=== PATIENT | male | born 1945 | race Caucasian/White ===

== ENCOUNTER → 2023-09-14 11:35 | Outpatient (REF) | payer MEDICARE, SELFPAY ==
[2023-09-14 12:15] LABS: % Basophils 0.6 % (0-2); % Eosinophils 3.5 % (0-6); % Immature Granulocytes 0.3 % (0-0.5); % Lymphocytes 10.5 % (20.5-51.1); % Monocytes 7.9 % (1.7-9.3); % Neutrophils 77.2 % (42.2-75.2); Absolute Basophils 0.1 10^3/uL (0-0.2); Absolute Eosinophils 0.4 10^3/uL (0-0.7); Absolute Lymphocytes 1.1 10^3/uL (1.2-3.4); Absolute Monocytes 0.8 10^3/uL (0.1-0.6); Absolute Neutrophils 8.2 10^3/uL (1.4-6.5); Hematocrit 39.5 % (39.0-52.0); Hemoglobin 12.6 g/dL (13.0-18.0); Mean Corp Hgb Conc. 31.9 g/dL (33.0-37.0); Mean Corpuscular Hgb 31.8 pg (27.0-31.0); Mean Corpuscular Volume 99.7 fL (80.0-94.0); Mean Platelet Volume 11.2 fL (7.4-10.4); Nucleated Red Blood Cells % 0 % (-); Platelet Count 214 10^3/uL (130-400); Red Blood Cell Count 3.96 10^6/uL (4.70-6.10); Red Cell Dist. Width 13.2 % (11.5-14.5); White Blood Cell Count 10.6 10^3/uL (4.8-10.8)
[2023-09-14 12:43] LABS: ALT (SGPT) 34 U/L (0-50); AST (SGOT) 42 U/L (17-59); Alkaline Phosphatase 73 U/L (38-126); Blood Urea Nitrogen 20 mg/dl (9-20); Calcium 9.1 mg/dl (8.4-10.2); Carbon Dioxide 29 mmol/L (22-30); Chloride 109 mmol/L (98-107); Glucose 93 mg/dl (70-99); HDL Cholesterol 47 mg/dl; LDL Cholesterol, Calculated 104 mg/dl; Potassium 3.8 mmol/L (3.5-5.1); Sodium 141 mmol/L (135-145); Total Bilirubin 1.1 mg/dl (0.2-1.3); Total Cholesterol 168 mg/dl (50-199); Total Protein 6.7 g/dl (6.3-8.2); Triglyceride 89 mg/dl (10-149); Very Low Density Lipoprotein 17 mg/dl (0-30); eGFR > 60.00
== END ==
LOC: REG 11:35
PROVIDERS: ATTENDING PHYSICIAN Family Medicine; OTHER PHYSICIAN Internal Medicine Critical Care Medicine; REFERRING PHYSICIAN Internal Medicine Cardiovascular Disease
DX: E78.2 Mixed hyperlipidemia (principal); F10.20 Alcohol dependence, uncomplicated
CPT/HCPCS: 36415; 80053; 80061; 85025

== ENCOUNTER → 2023-10-30 13:44 | Outpatient (REF) | payer MEDICARE, SELFPAY | LOC: RCS 13:44 | PROVIDERS: ATTENDING PHYSICIAN Internal Medicine Cardiovascular Disease; FAMILY PHYSICIAN Family Medicine | DX: Z95.2 Presence of prosthetic heart valve (principal) | CPT/HCPCS: 93306 ==

== ENCOUNTER 2024-06-02 16:20 | Emergency (ER) | payer MEDICARE, SELFPAY ==
[2024-06-02 16:21] VITALS: BP 173/71
--- NOTE | 2024-06-02 16:48 | EDRN ---
Dr. Zuñiga in room w/ pt at this time.
--- NOTE | 2024-06-02 16:54 | ED.GENMED ---
History of Present Illness
General
Chief Complaint: Visual Problem
Source: patient
Exam Limitations: none
Time Seen by Provider: 06/02/24 16:43
History of Present Illness
History of Present Illness:
See MDM
Past History
Past History
ED Past Medical History: Hypercholesterolemia and Other (BPH, nocturnal enuresis)
ED Past Surgical History: Other (TAVR procedure)
Social History
Tobacco: Former smoker
Alcohol: Daily
Drug: Marijuana (Medical marijuana to relax)
Personal:
Living: with family
Employment: Retired
Family History
Family History: Other (Noncontributory)
Phy Exam
Physical Exam
Physical Exam:
See MDM
Course
Orders/Labs/Results
Orders:
Orders
06/02/24 16:52
CT Head & Neck Angio W/wo IV Urgent
Comment:
Reason For Exam: Sudden R vision loss
06/02/24 17:04
CRP [C-Reactive Protein] Urgent
Complete Blood Count/With Diff Urgent
Comprehensive Metabolic Panel Urgent
ESR [Erythrocyte Sed Rate] Urgent
Abnormal Lab Results
06/02/24
17:04
RBC 4.21 L 10^6/uL
(4.70-6.10)
MCV 99.3 H fL
(80.0-94.0)
MCH 32.1 H pg
(27.0-31.0)
MCHC 32.3 L g/dL
(33.0-37.0)
MPV 10.5 H fL
(7.4-10.4)
Abs Immat Gran (auto) 0.1 H 10^3/uL
(0-0.05)
Absolute Neuts (auto) 7.6 H 10^3/uL
(1.4-6.5)
Absolute Monos (auto) 0.8 H 10^3/uL
(0.1-0.6)
Immature Gran % 0.6 H %
(0-0.5)
Lymphocytes % 15.4 L %
(20.5-51.1)
Glucose 117 H mg/dl
(70-99)
06/02/24 17:04
06/02/24 17:04
Vital Signs
Initial and Last Documented VS:
Initial Vital Signs
Temp Pulse Resp BP Pulse Ox
98.1 F 98 18 173/71 94
06/02/24 16:21 06/02/24 16:21 06/02/24 16:21 06/02/24 16:21 06/02/24 16:21
Last Documented Vital Signs
Temp Pulse Resp BP Pulse Ox
98.1 F 80 16 153/71 92
06/02/24 16:21 06/02/24 18:30 06/02/24 18:30 06/02/24 18:30 06/02/24 18:30
MDM/Problems Addressed
Differential Diagnosis Includes:
HPI and MDM Narrative:
78-year-old male presenting for evaluation of sudden vision loss in his right eye. Symptoms started around 9 AM. There was no pain associated with this. He states the right lower corner of his right eye was involved. He states it was black. He
saw his retinal doctor immediately and had a dilated exam which was concerning for 'a cholesterol clot'. Patient states his gleason gear generator drained fluid in his eye to relieve some of the pressure and to allow better blood flow. Patient states his
vision started to return immediately after the procedure. His gleason gear generator suggested he go to the emergency department to look for other stroke concerns. Patient denies any other complaints and states his vision is much better but still mildly
blurry. He is compliant with his statin and his daily baby aspirin
Physical exam
General: Well appearing and non-toxic
HEENT: protecting airway. Right pupil dilated. EOMI. No visual field cut
Neck: appears supple
CV: No evidence of cyanosis. Regular rate and rhythm
Resp: No accessory muscle use
Abd: Non-distended
Extremities: No deformities
Neuro: alert
Psych: Normal affect
Skin: Intact
Problems Addressed including Acute and Chronic Conditions affecting care:
1. Sudden vision loss
Acuity: acute
Prognosis: stable
Details: Patient appears to be explaining central retinal arterial occlusion. He has close follow-up with the gleason gear generator but was sent in for further evaluation. Will obtain CT angio head and neck
Updates
ESR and CRP negative. CT angiogram negative for acute pathology. Patient states his vision is improving even more and feels comfort going home. Discussed follow-up with PCP and continuing to take his aspirin daily
Differential Diagnosis (but not limited to): Giant cell arteritis, central artery retinal occlusion, carotid stenosis
Testing considered: Troponin but he denies chest pain or shortness of breath
Drug therapy (if applicable): OTC meds, please see d/c instruction regarding Rx drugs
Amount and/or Complexity of Data Reviewed
Clinical info obtained from: Patient
External data reviewed: N/A
Labs I independently reviewed (but not limited to): ESR and CRP negative
Radiology: The CT scan was personally and independently reviewed. In addition, official CT report reviewed.
Pulse Ox: not hypoxic
EKG independently reviewed: N/A
Metal Control Coordinator: N/A
Critical Care: N/A
Risk of Complication:
Social Determinants of health: Good social support
Discussed with other providers: N/A
Escalation of Care includes Admit/Obs: After being observed in the Emergency Department, pt stable for discharge.
Occasional wrong word or 'sound a like' substitutions may have occurred due to the inherent limitations of voice recognition software. Read the chart carefully and recognize, using context, where substitutions have occurred.
*Critical Care Note
Total Time (30-74mins, 75-104mins- exclusive of procedures): Not Applicable
ED Attending Note
-
Portions of this chart may have been created with voice recognition software.� Occasional wrong word or��sound alike� substitutions may have occurred due to the inherent limitations of voice recognition software.
Discharge Plan
Departure
Patient Disposition: Home (Routine Discharge)
Date of Disposition: 06/02/24
Time of Disposition: 19:16
Patient with high blood pressure during this ER visit?: Yes
Discharge Problem:
Central retinal artery occlusion of right eye
Instructions: BLOOD PRESSURE
Prescriptions:
No Action
atorvastatin [Lipitor] 20 MG tablet
80 mg PO DAILY
naproxen sodium [Aleve] 220 MG tablet
220 mg PO PRN PRN (Reason: pain)
Creon 1 EACH capsule,delayed release(DR/EC)
1 ea PO QID
aspirin 81 MG tablet,chewable
81 mg PO DAILY
alprazolam 1 MG tablet
2.5 mg PO HS
tamsulosin 0.4 MG capsule
0.4 mg PO HS
ezetimibe 10 MG tablet
10 mg PO HS
acetaminophen 500 mg Tablet
500 mg PO Q6H PRN (Reason: pain)
pancreatin 500 mg Tablet
2 mg PO DAILY
Rx Instructions:
2 capsules
trazodone 50 mg Tablet
50 mg PO DAILY
lamotrigine 25 mg Tablet
50 mg PO DAILY
cefdinir 300 mg Capsule
300 mg PO DAILY
gabapentin 300 mg Tablet
300 mg PO DAILY
Referrals:
Bessy Coffey DO [Family Provider] -
Activity Restrictions/Additional Instructions:
Please return for any worsening symptoms.
You may return at any time if you have further concerns.
Please follow up with your doctor at the first available appointment, preferably this week. Please continue to take your aspirin daily as discussed.
Please follow-up with your gleason gear generator as scheduled.
Thank you for choosing [facility].
Interventions
Interventions:
*Risk Screen - Suicide Last Done: 06/02/24 16:21
*General Assessment Last Done: 06/02/24 16:21
*Neglect/Abuse Screening Last Done: 06/02/24 16:21
ED- Fall Risk Assessment Last Done: 06/02/24 17:09
*ED COVID-19 Vaccine History Last Done: 06/02/24 17:09
ED- Neurological Assessment Last Done: 06/02/24 17:09
ED-EENT Assessment Last Done: 06/02/24 18:30
ED Swallowing Screen Last Done: 06/02/24 17:15
Discharge Date and Time
Print Language: BENGALI
[2024-06-02 17:09] VITALS: BP 147/68; BMI 27.1
[2024-06-02 17:15] LABS: % Basophils 0.4 % (0-2); % Eosinophils 0.8 % (0-6); % Immature Granulocytes 0.6 % (0-0.5); % Lymphocytes 15.4 % (20.5-51.1); % Monocytes 8.3 % (1.7-9.3); % Neutrophils 74.5 % (42.2-75.2); Absolute Eosinophils 0.1 10^3/uL (0-0.7); Absolute Immature Granulocytes 0.1 10^3/uL (0-0.05); Absolute Lymphocytes 1.6 10^3/uL (1.2-3.4); Absolute Monocytes 0.8 10^3/uL (0.1-0.6); Absolute Neutrophils 7.6 10^3/uL (1.4-6.5); Hematocrit 41.8 % (39.0-52.0); Hemoglobin 13.5 g/dL (13.0-18.0); Mean Corp Hgb Conc. 32.3 g/dL (33.0-37.0); Mean Corpuscular Hgb 32.1 pg (27.0-31.0); Mean Corpuscular Volume 99.3 fL (80.0-94.0); Mean Platelet Volume 10.5 fL (7.4-10.4); Nucleated Red Blood Cells % 0 % (-); Platelet Count 211 10^3/uL (130-400); Red Blood Cell Count 4.21 10^6/uL (4.70-6.10); Red Cell Dist. Width 13.4 % (11.5-14.5); White Blood Cell Count 10.1 10^3/uL (4.8-10.8)
[2024-06-02 17:19] LABS: Erythrocyte Sed Rate 20 mm/hour (0-20)
[2024-06-02 17:28] LABS: ALT (SGPT) 37 U/L (0-50); AST (SGOT) 38 U/L (17-59); Albumin 4.3 g/dl (3.5-5.0); Alkaline Phosphatase 74 U/L (38-126); Blood Urea Nitrogen 10 mg/dl (9-20); Calcium 9.5 mg/dl (8.4-10.2); Carbon Dioxide 29 mmol/L (22-30); Chloride 103 mmol/L (98-107); Estimated Creatinine Clearance 84 ml/min; Glucose 117 mg/dl (70-99); Potassium 4.1 mmol/L (3.5-5.1); Sodium 140 mmol/L (135-145); Total Bilirubin 1.2 mg/dl (0.2-1.3); Total Protein 6.9 g/dl (6.3-8.2); eGFR > 60.00
[2024-06-02 18:30] VITALS: BP 153/71
== END 2024-06-02 19:59 | disposition home or self-care (01) ==
LOC: EMR 16:20
PROVIDERS: EMERGENCY PHYSICIAN Student in an Organized Health Care Education/Training Program; FAMILY PHYSICIAN Family Medicine
DX: H34.11 Central retinal artery occlusion, right eye (principal); E78.00 Pure hypercholesterolemia, unspecified; N40.0 Benign prostatic hyperplasia without lower urinary tract symptoms; Z87.891 Personal history of nicotine dependence
CPT/HCPCS: 99284; 70496; 70498; 80053; 85025; 85652; 86140; Q9967

== ENCOUNTER → 2024-06-28 09:15 | Outpatient (REF) | payer MEDICARE, SELFPAY ==
[2024-06-28 10:22] LABS: Albumin 4.1 g/dl (3.5-5.0); Blood Urea Nitrogen 17 mg/dl (9-20); Carbon Dioxide 32 mmol/L (22-30); Chloride 103 mmol/L (98-107); Glucose 84 mg/dl (70-99); Total Cholesterol 184 mg/dl (50-199); eGFR > 60.00
[2024-06-28 10:31] LABS: ALT (SGPT) 24 U/L (0-50); AST (SGOT) 31 U/L (17-59); Alkaline Phosphatase 72 U/L (38-126); Calcium 9.2 mg/dl (8.4-10.2); HDL Cholesterol 42 mg/dl; LDL Cholesterol, Calculated 127 mg/dl; Potassium 4.1 mmol/L (3.5-5.1); Sodium 142 mmol/L (135-145); Total Bilirubin 0.9 mg/dl (0.2-1.3); Total Protein 6.7 g/dl (6.3-8.2); Triglyceride 78 mg/dl (10-149); Very Low Density Lipoprotein 15 mg/dl (0-30)
[2024-06-28 12:14] LABS: Glycohemoglobin (HgbA1c) 5.6 % (4.0-5.6)
== END ==
LOC: REG 09:15
PROVIDERS: ATTENDING PHYSICIAN Family Medicine
DX: H34.11 Central retinal artery occlusion, right eye (principal); R73.01 Impaired fasting glucose
CPT/HCPCS: 36415; 80053; 80061; 83036

== ENCOUNTER → 2024-08-08 12:52 | Outpatient (REF) | payer MEDICARE, SELFPAY | LOC: RAD 12:52 | PROVIDERS: ATTENDING PHYSICIAN Specialist; FAMILY PHYSICIAN Family Medicine; OTHER PHYSICIAN Podiatrist Primary Podiatric Medicine | DX: I77.9 Disorder of arteries and arterioles, unspecified (principal) | CPT/HCPCS: 93922; 93925 ==

== ENCOUNTER 2024-08-14 06:19 | Day surgery (SDC) | payer MEDICARE, SELFPAY ==
[2024-08-14 12:00] VITALS: BMI 28.1
[2024-08-14 12:10] VITALS: BP 144/72
[2024-08-14 12:30] VITALS: BMI 28.1
[2024-08-14 13:40] VITALS: BP 105/52
[2024-08-14 13:45] VITALS: BP 120/60
== END 2024-08-14 14:15 | disposition home or self-care (01) ==
LOC: SDS 06:19
PROVIDERS: ATTENDING PHYSICIAN Internal Medicine Gastroenterology
DX: K22.2 Esophageal obstruction (principal); R13.10 Dysphagia, unspecified
CPT/HCPCS: 43249; C1726

== ENCOUNTER → 2024-08-26 11:14 | Outpatient (REF) | payer MEDICARE, SELFPAY ==
[2024-08-28 13:23] LABS: Rubeola (Measles) IgG Positive
== END ==
LOC: RAD 11:14
PROVIDERS: ATTENDING PHYSICIAN Family Medicine
DX: Z01.84 Encounter for antibody response examination (principal)
CPT/HCPCS: 36415; 86765

== ENCOUNTER → 2024-09-05 12:10 | Outpatient (REF) | payer MEDICARE, SELFPAY ==
[2024-09-05 14:51] LABS: Total Thyroxine 7.68 ug/dl (5.5-11.0)
[2024-09-05 15:05] LABS: TSH 2.58 uIU/ml (0.47-4.68)
[2024-09-05 15:41] LABS: Folate > 20.0 ng/ml (2.76-20); Vitamin B12 922 pg/ml (239-931)
== END ==
LOC: REG 12:10
PROVIDERS: ATTENDING PHYSICIAN Internal Medicine Gastroenterology; FAMILY PHYSICIAN Family Medicine; REFERRING PHYSICIAN Specialist
DX: K86.81 Exocrine pancreatic insufficiency (principal); G60.3 Idiopathic progressive neuropathy; D51.8 Other vitamin B12 deficiency anemias; E03.9 Hypothyroidism, unspecified
CPT/HCPCS: 36415; 82607; 82653; 82746; 82784; 83521; 84155; 84165; 84436; 84443; 86038; 86235; 86255; 86334; 86430

== ENCOUNTER 2024-09-25 06:17 | Day surgery (SDC) | payer MEDICARE, SELFPAY | END 2024-09-25 14:36 | disposition home or self-care (01) | LOC: GI 06:17 | PROVIDERS: ATTENDING PHYSICIAN Internal Medicine Gastroenterology | DX: Z12.11 Encounter for screening for malignant neoplasm of colon (principal); Z86.0100 Personal history of colon polyps, unspecified; K57.30 Diverticulosis of large intestine without perforation or abscess without bleeding; K64.8 Other hemorrhoids | CPT/HCPCS: G0105 ==

== ENCOUNTER → 2024-10-23 14:59 | Outpatient (REF) | payer MEDICARE, SELFPAY | LOC: MRI 14:59 | PROVIDERS: ATTENDING PHYSICIAN Specialist; FAMILY PHYSICIAN Family Medicine | DX: G95.9 Disease of spinal cord, unspecified (principal); M54.16 Radiculopathy, lumbar region | CPT/HCPCS: 72146; 72148 ==

== ENCOUNTER → 2024-11-04 12:33 | Outpatient (REF) | payer MEDICARE, SELFPAY | LOC: RCS 12:33 | PROVIDERS: ATTENDING PHYSICIAN Internal Medicine Cardiovascular Disease; FAMILY PHYSICIAN Family Medicine | DX: Z95.2 Presence of prosthetic heart valve (principal) | CPT/HCPCS: 93306 ==

== ENCOUNTER → 2024-11-10 13:23 | Outpatient (REF) | payer MEDICARE, SELFPAY | LOC: REG 13:23 | PROVIDERS: ATTENDING PHYSICIAN Family Medicine | DX: N40.1 Benign prostatic hyperplasia with lower urinary tract symptoms (principal) | CPT/HCPCS: 36415; 84153; 84154 ==

== ENCOUNTER 2025-05-11 12:27 | Emergency (ER) | payer MEDICARE, SELFPAY ==
[2025-05-11 12:33] VITALS: BP 167/98
[2025-05-11 13:13] VITALS: BP 162/75
[2025-05-11 13:48] VITALS: BMI 26.8
[2025-05-11 14:02] VITALS: BP 210/90
--- NOTE | 2025-05-11 14:16 | ED.GENMED ---
History of Present Illness
General
Chief Complaint: Overdose Unintentional
Source: patient
Exam Limitations: none
Time Seen by Provider: 05/11/25 13:29
Nursing documentation reviewed up to this point in time: agreed with
History of Present Illness
History of Present Illness:
The patient is a pleasant 79-year-old man who reports feeling ' drunk' and lightheaded after accidentally taking too much trazodone throughout the night. Patient reports that he misunderstood the directions of taking the trazodone. He reports that
around midnight he took 100 mg. He reports that he then believes he took 100 mg again at 2 AM, and then again at 4 AM, and then again at 6 AM. Therefore, he reports he thinks he took about 400 mg of trazodone within a 6-hour time period. Patient
denies headache, nausea, vomiting and vision changes.
Past History
Past History
ED Past Medical History: Hypercholesterolemia and Other (BPH, nocturnal enuresis)
ED Past Surgical History: Cardiac (TAVR procedure)
Social History
Tobacco: Former smoker
Alcohol: Daily
Drug: None
Personal:
Living: with family
Employment: Retired
Family History
Family History: Other (Noncontributory)
Review of Systems
Review of Systems
Allergies reviewed?: Yes
All Other Systems: ROS reviewed and negative except as documented in HPI and ROS
Constitutional: Reports no symptoms
EENT: Reports no symptoms
Respiratory: Reports no symptoms
Cardiac: Reports no symptoms
ABD/GI: Reports no symptoms
: Reports no symptoms
Musculoskeletal: Reports no symptoms
Neurological: Reports other (Lightheaded, ' feels drunk')
Endocrine: Reports no symptoms
Hematologic/Lymphatic: Reports no symptoms
Psychiatric: Reports no symptoms
Phy Exam
Physical Exam
Physical Exam:
Physical Exam
General: no apparent distress, not acutely ill. Well and comfortable appearing
Neck: supple. no meningeal signs. normal psoterior pharynx
Heart: s1/s2 regular rate and rhythm, occasional PVCs
Lungs: no acute respiratory distress. clear bilaterally
Abdomen: normal bowel sounds. not tender. no CVAT
Neuro: alert and orientedx3. no focal neurological deficits, normal finger-nose. Steady gait. 5 out of 5 strength in all extremities without drift
Skin: no rash
Psychiatric: well kept. interactive and cooperative
Extremities: no edema. no calf tenderness. negative homans. good distal pulses
Course
Orders/Labs/Results
Orders:
Orders
05/11/25 13:30
Electrocardiogram (*1) Urgent
Reason for Study: Other
Other Reason for Exam: overdose
EKG- Treatment ONCE
05/11/25 14:15
Complete Blood Count/With Diff Urgent
05/11/25 14:53
Acetaminophen Urgent
Comment: ADD ON
Comprehensive Metabolic Panel Urgent
Salicylate Urgent
Comment: ADD ON
05/11/25 16:01
Add On- LAB Urgent
Tests Added?: Tylenol level, salicylate level
Abnormal Lab Results
05/11/25 05/11/25
14:15 14:53
RBC 4.44 L 10^6/uL
(4.70-6.10)
MCV 99.3 H fL
(80.0-94.0)
MCH 33.1 H pg
(27.0-31.0)
MPV 11.3 H fL
(7.4-10.4)
Abs Immat Gran (auto) 0.1 H 10^3/uL
(0-0.05)
Absolute Neuts (auto) 8.3 H 10^3/uL
(1.4-6.5)
Absolute Monos (auto) 0.7 H 10^3/uL
(0.1-0.6)
Immature Gran % 0.6 H %
(0-0.5)
Neutrophils % 77.6 H %
(42.2-75.2)
Lymphocytes % 14.3 L %
(20.5-51.1)
Creatinine 0.6 L mg/dL
(0.7-1.3)
Glucose 106 H mg/dl
(70-99)
Total Bilirubin 1.4 H mg/dl
(0.2-1.3)
Salicylates < 1.0 L mg/dl
(2.0-20.0)
Acetaminophen < 10 L ug/ml
(10-30)
05/11/25 14:15
05/11/25 14:53
Vital Signs
Initial and Last Documented VS:
Initial Vital Signs
Temp Pulse Resp BP Pulse Ox
97.9 F 92 18 167/98 95
05/11/25 12:33 05/11/25 12:33 05/11/25 12:33 05/11/25 12:33 05/11/25 12:33
Last Documented Vital Signs
Temp Pulse Resp BP Pulse Ox
97.9 F 93 20 158/71 93
05/11/25 12:33 05/11/25 15:15 05/11/25 15:15 05/11/25 15:13 05/11/25 14:30
MDM/Problems Addressed
Differential Diagnosis Includes:
Accidental trazodone overdose, acute hyponatremia, cardiac arrhythmia
MDM/Problems Addressed:
Patient complains of feeling tired and ' drunk like' after accidentally taking too much trazodone
Acute Exacerbation and/or Progression of Chronic Illness:
Patient is acutely hypertensive, likely due to anxiety. He reports that he does feel anxious because he took too much trazodone.
Acute Exacerbation and/or Progression of Chronic Illness: HTN
*Pulse Oximetry
SaO2: 91
Oxygen Mode of Delivery: Room air
Patient hypoxic: no
*EKG
Interpreted by ED Provider?: Yes
Interpretation: abnormal
Comparison EKG: no changes
Rate: normal
Rhythm: sinus
[place]: left axis deviation
Interval: normal interval
QRS Pattern: wide non-specific
Ischemia: non-specific ST changes
*Supervisor Harvesting Interpretation
Rate: normal
Interpretation: normal
Rhythm: sinus
*Critical Care Note
Total Time (30-74mins, 75-104mins- exclusive of procedures): Not Applicable
Patient Management
Social determinants of health affecting care: Living situation and Strong social support
Discussion with other providers: Other (Case discussed with toxicology at [facility] who feels that patient can safely go home if he is steady on his feet and does not have a low blood pressure, which he has not.)
Escalation/DeEscalation of care consider admission/obs:
Patient remains well and stable. He has a normal neurological exam and is able to walk around steadily. Patient ate and drink and feels better. Patient educated on how to take trazodone. Patient also encouraged to take no more trazodone or any
alprazolam today/tonight. Patient told he can restart his alprazolam and trazodone tomorrow as instructed.
ED Attending Note
-
Portions of this chart may have been created with voice recognition software.� Occasional wrong word or��sound alike� substitutions may have occurred due to the inherent limitations of voice recognition software.
Discharge Plan
Departure
Patient Disposition: Home (Routine Discharge)
Date of Disposition: 05/11/25
Time of Disposition: 17:08
Patient with high blood pressure during this ER visit?: Yes
Condition: Good
Covid-19: Not Applicable
Discharge Problem:
Accidental overdose
Instructions: Accidental Overdose (DC), BLOOD PRESSURE
Prescriptions:
No Action
atorvastatin [Lipitor] 20 MG tablet
80 mg PO DAILY
naproxen sodium [Aleve] 220 MG tablet
220 mg PO PRN PRN (Reason: pain)
aspirin 81 MG tablet,chewable
81 mg PO DAILY
alprazolam 1 MG tablet
1 mg PO BID
tamsulosin 0.4 MG capsule
0.4 mg PO DAILY
ezetimibe 10 MG tablet
10 mg PO DAILY
trazodone 50 mg Tablet
50 mg PO HS
gabapentin 300 mg Tablet
300 mg PO DAILY
amoxicillin 500 mg Tablet
500 mg PO BID
dorzolamide-timolol (PF) 2-0.5 % Drops
1 drp BOTH EYES DAILY
Vitamin C
500 mg PO DAILY
calcium 600 mg Capsule
600 mg PO BID
magnesium 250 mg Tablet
250 mg PO DAILY
multivitamin Capsule
1 cap PO DAILY
aspirin [Baby Aspirin] 81 mg Tablet,Chewable
81 mg PO DAILY
Phosphatidyl
1 tab PO DAILY
Vitamin D3
1 cap PO DAILY
fluorometholone
1 % BOTH EYES DAILY
iron
25 mg PO DAILY
potassium
1 tab PO DAILY
brimonidine 0.2 % Drops
1 drp BOTH EYES BID
Referrals:
Bessy Coffey DO [Family Provider, Family Practice]
Activity Restrictions/Additional Instructions:
Do not take any trazodone or any sedating medication until tomorrow. Return with any vision changes, worsening dizziness, weakness, numbness or difficulty breathing.
Interventions
Interventions:
*Risk Screen - Suicide Last Done: 05/11/25 12:33
*General Assessment Last Done: 05/11/25 13:48
*Neglect/Abuse Screening Last Done: 05/11/25 13:48
*ED- Fall Risk Assessment Last Done: 05/11/25 13:48
*ED COVID-19 Vaccine History Last Done: 05/11/25 13:48
*ED Influenza Vaccine History Last Done: 05/11/25 13:48
ED- Cardiac Assessment Last Done: 05/11/25 13:48
ED- Neurological Assessment Last Done: 05/11/25 13:48
ED-Psychological Assessment Last Done: 05/11/25 13:48
ED- Pulmonary Assessment Last Done: 05/11/25 13:48
Discharge Date and Time
Print Language: LITHUANIAN
[2025-05-11 14:41] LABS: Hematocrit 44.1 % (39.0-52.0); Hemoglobin 14.7 g/dL (13.0-18.0); Mean Corp Hgb Conc. 33.3 g/dL (33.0-37.0); Mean Corpuscular Volume 99.3 fL (80.0-94.0); Platelet Count 214 10^3/uL (130-400); Red Cell Dist. Width 13.0 % (11.5-14.5)
[2025-05-11 15:13] VITALS: BP 158/71
[2025-05-11 15:29] LABS: ALT (SGPT) 27 U/L (0-50); AST (SGOT) 36 U/L (17-59); Albumin 4.9 g/dl (3.5-5.0); Alkaline Phosphatase 84 U/L (38-126); Blood Urea Nitrogen 10 mg/dl (9-20); Calcium 9.8 mg/dl (8.4-10.2); Carbon Dioxide 29 mmol/L (22-30); Chloride 103 mmol/L (98-107); Estimated Creatinine Clearance 95 ml/min; Glucose 106 mg/dl (70-99); Potassium 4.3 mmol/L (3.5-5.1); Sodium 137 mmol/L (135-145); Total Protein 8.2 g/dl (6.3-8.2); eGFR > 60.00
[2025-05-11 15:57] LABS: Nucleated Red Blood Cells % 0 % (-)
[2025-05-11 16:26] LABS: Acetaminophen < 10 ug/ml (10-30); Salicylate < 1.0 mg/dl (2.0-20.0)
[2025-05-11 17:35] VITALS: BP 135/57; BP 137/57
== END 2025-05-11 17:40 | disposition home or self-care (01) ==
LOC: EMR 12:27
PROVIDERS: EMERGENCY PHYSICIAN Emergency Medicine; FAMILY PHYSICIAN Family Medicine
DX: T43.211A Poisoning by selective serotonin and norepinephrine reuptake inhibitors, accidental (unintentional), initial encounter (principal); R42 Dizziness and giddiness; X58.XXXA Exposure to other specified factors, initial encounter; E78.00 Pure hypercholesterolemia, unspecified; Z87.891 Personal history of nicotine dependence
CPT/HCPCS: 99284; 80053; 80143; 80179; 85025; 93005